=== PATIENT | male | born 1965 | race African-American/Black ===

== ENCOUNTER 2021-01-28 20:05 | Emergency (ER) | payer BC ==
--- NOTE | 2021-01-28 21:39 | XR ---
EXAMINATION TYPE: XR chest 2V DATE OF EXAM: 01/28/2021 COMPARISON: NONE HISTORY: Chest pain TECHNIQUE: Frontal and lateral views of the chest are obtained. FINDINGS: There is no focal air space opacity, pleural effusion, or pneumothorax seen. The cardiac silhouette size is within normal limits. The osseous structures are intact. IMPRESSION: No acute cardiopulmonary process.
[2021-01-28] MEDS ORDERED: IBUPROFEN 800 MG TAB PO STA (21:56)
[2021-01-28] MEDS ORDERED: Acetaminophen-Codeine 300-30mg TAB PO STA (21:56)
[2021-01-28] MEDS ORDERED: ACET/COD 300 MG/30 MG STARTER PACK 6 TAB BTL PO STA (21:56)
[2021-01-28] MEDS ORDERED: IBUPROFEN 600 MG STARTER PACK 4 TAB BTL PO STA (21:56)
--- NOTE | 2021-01-28 21:57 | ED ---
Chest Pain HPI - General Chief Complaint: Chest Pain Stated Complaint: Car Rolled over side Time Seen by Provider: 01/28/21 21:23 Source: patient, RN notes reviewed, old records reviewed Mode of arrival: ambulatory Limitations: no limitations - History of Present Illness Initial Comments: This is a 55-year-old male to the ER for evaluation patient presents today for evaluation regards to chest pain right-sided chest wall pain with bruising and contusion. Patient had originally some difficulty breathing but no other complaints aside from breathing and pain. Patient states he was doing some work on his daughter's car when simply enrolled into the right side of his chest. His pain is persistent although improving currently. Patient denies any a bdominal pain and had no other trauma from the injury. Patient has pulse hypertension and diabetes MD Complaint: chest pain, other (Right-sided chest wall contusion) -: hour(s) Onset: other (While working on a car) Pain Location: right chest Severity: moderate Severity scale (1-10): 4 Quality: sharp Consistency: constant Improves With: nothing Worsens With: nothing Context: trauma/injury Anginal Symptoms: dyspnea Other Symptoms: cough Treatments Prior to Arrival: none - Related Data Home Medications Medication Instructions Recorded Confirmed Acetaminophen Tab [Tylenol Tab] 500 mg PO Q6H PRN 01/28/21 01/28/21 Butalbital/Aspirin/Caffeine 1 tab PO BID PRN 01/28/21 01/28/21 [Pxeblt-Inenkgr-Bhznhfus 50-325-40 mg] Losartan Potassium [Cozaar] 25 mg PO DAILY 01/28/21 01/28/21 Pravastatin Sodium [Pravachol] 20 mg PO DAILY 01/28/21 01/28/21 amLODIPine [Norvasc] 5 mg PO DAILY 01/28/21 01/28/21 Allergies Allergy/AdvReac Type Severity Reaction Status Date / Time No Known Allergies Allergy Verified 01/28/21 22:12 Review of Systems ROS Statement: Those systems with pertinent positive or pertinent negative responses have been documented in the HPI. ROS Other: All systems not noted in ROS Statement are negative. Past Medical History Past Medical History: Diabetes Mellitus, Hypertension History of Any Multi-Drug Resistant Organisms: None Reported Past Surgical History: No Surgical Hx Reported Past Psychological History: No Psychological Hx Reported Smoking Status: Never smoker Past Alcohol Use History: None Reported Past Drug Use History: None Reported General Exam General appearance: alert, in no apparent distress Head exam: Present: atraumatic, normocephalic, normal inspection Eye exam: Present: normal appearance, PERRL, EOMI. Absent: scleral icterus, conjunctival injection, periorbital swelling ENT exam: Present: normal exam, mucous membranes moist Neck exam: Present: normal inspection. Absent: tenderness, meningismus, lymphadenopathy Respiratory exam: Present: normal lung sounds bilaterally. Absent: respiratory distress, wheezes, rales, rhonchi, stridor Cardiovascular Exam: Present: regular rate, normal rhythm, normal heart sounds, other (Significant right-sided chest wall contusion and tenderness). Absent: systolic murmur, diastolic murmur, rubs, gallop, clicks GI/Abdominal exam: Present: soft, normal bowel sounds. Absent: distended, tenderness, guarding, rebound, rigid Extremities exam: Present: normal inspection, full ROM, normal capillary refill. Absent: tenderness, pedal edema, joint swelling, calf tenderness Back exam: Present: normal inspection Neurological exam: Present: alert, oriented X3, CN II-XII intact Psychiatric exam: Present: normal affect, normal mood Skin exam: Present: warm, dry, intact, normal color. Absent: rash Course Vital Signs 01/28/21 20:07 Temperature 98.5 F Pulse Rate 82 Respiratory 19 Rate Blood Pressure 155/96 O2 Sat by Pulse 98 Oximetry - Reevaluation(s) Reevaluation #1: 01/29/21 00:00 Medical record is reviewed Reevaluation #2: 01/29/21 00:00 Patient is informed of results here in the ER and questions have been answered Chest Pain MDM - MDM 52 female with right-sided try chest wall contusion, x-ray otherwise is normal for fracture no pneumothorax, no blood in the ER Disposition Clinical Impression: Atypical chest pain, Contusion of right chest wall Disposition: HOME SELF-CARE Condition: Good Instructions (If sedation given, give patient instructions): Pulmonary Contu nai (ED), Blunt Chest Trauma (ED) Is patient prescribed a controlled substance at d/c from ED?: No Referrals: Nonstaff,Physician [Primary Care Provider] - 1-2 days
[2021-01-28 23:02] LABS: Appearance,Urine Clear (Clear); Bilirubin,Urine Negative (Negative); Blood,Urine Negative (Negative); Color,Urine Yellow; Glucose,Urine (UA) Negative (Negative); Ketones,Urine Negative (Negative); Leukocyte Esterase,Urine Negative (Negative); Nitrite,Urine Negative (Negative); PH, Urine 5.5 (5.0-8.0); Protein,Urine Trace (Negative); Specific Gravity,Urine 1.033 (1.001-1.035); Urobilinogen,Urine <2.0 mg/dL (<2.0)
[2021-01-28 23:57] VITALS: BP 148/96; PULSE 67; RESP 18; TEMP 98.6
== END 2021-01-28 23:54 | disposition home or self-care (01) ==
LOC: EC 20:05
DX: S20.211A Contusion of right front wall of thorax, initial encounter (principal); I10 Essential (primary) hypertension; E11.9 Type 2 diabetes mellitus without complications; Z79.82 Long term (current) use of aspirin; V87.8XXA Person injured in other specified noncollision transport accidents involving motor vehicle (traffic), initial encounter; Y93.89 Activity, other specified
CPT/HCPCS: 71046; 81003; 99285